=== PATIENT | male | born 1960 | race Caucasian/White ===

== ENCOUNTER → 2017-05-12 | Day surgery (SDC) | payer BC ==
[~2017-05-12] MED LIST: CELECOXIB200 MG PO; PRAVASTATIN SOD20 MG PO
--- NOTE | ~2017-05-12 | OR ---
Unit #: [id number] #: [id number] Patient: VICKI RICK [id number] [facility]. [address] [place], [place] [address] [id number] MR#: [id number] NAME: VICKI RICK ROOM: Date of Procedure: 05/12/2017 Admission Date: 05/12/2017 Surgeon: Fuad Boone Jr., M.D. : 1960 Attending Physician: Fuad Boone Jr., M.D. Referring Physician: Fuad Boone Jr., M.D. Primary Care Physician: Paulo Bynum M.D. OPERATIVE REPORT INDICATIONS FOR PROCEDURE The patient is a 56-year-old white male, who recently presented to the office complaining of a large cystic mass of the back. He had been seen by a local spragger. It was felt this was chronic inflamed cyst. It should be removed under local anesthesia. He is brought in this time at his request for removal of this lesion. He understands the procedure including risks, including that of recurrence, infection, poor healing, chronic pain, and consents. PREOPERATIVE DIAGNOSIS Chronic inflamed cyst of the upper back. POSTOPERATIVE DIAGNOSIS Chronic inflamed cyst of the upper back, noting approximately 6 cm cyst. ANESTHESIA 1% Xylocaine with epinephrine locally. PROCEDURE PERFORMED Excision of a large cyst of the back. DESCRIPTION OF PROCEDURE The patient was positioned in prone position. After being prepped and draped in routine fashion, he was anesthetized locally in the area of the cyst with 1% Xylocaine with epinephrine. An elliptical incision was made around the cyst being totally excised from the surrounding tissue and down to the deeper subcutaneous tissue with a #10 blade scalpel. After the lesion was completely removed from the fascia of the muscle, hemostasis was achieved with Bovie cautery. The specimen sent to pathology and the wound was irrigated and again after hemostasis achieved with Bovie cautery, the deeper tissue was approximated with interrupted 3-0 Vicryl sutures. Subcutaneous tissue was approximated with interrupted 3-0 Vicryl sutures. Skin edges were approximated with stainless-steel skin clips and skin stapling device. Sterile dressings were applied externally. Estimated blood loss minimal. No drains used. No fluids given and no complications. The patient was taken to the discharge area with stable vital signs for discharge in satisfactory condition. Dictated by... Fuad Boone Jr., M.D. Unit #: [id number] #: [id number] Patient: VICKI RICK JAREK/kusum TD: 05/12/2017 12:46 JOB #: [id number] CC: Paulo Bynum M.D. OPERATIVE REPORT Page 1 of 1 X Fuad Boone MD X PROCEDURE OPERATIVE NOTE
== END | disposition home or self-care (01) ==
LOC: CSUR 05-05 08:30
DX: L72.0 Epidermal cyst (principal); M19.90 Unspecified osteoarthritis, unspecified site; E78.5 Hyperlipidemia, unspecified; M35.3 Polymyalgia rheumatica; Z98.890 Other specified postprocedural states
CPT/HCPCS: 88304